=== PATIENT | male | born 1985 | race Two or more races ===

== ENCOUNTER 2018-10-25 17:47 | Emergency (ER) | payer SELFPAY ==
[~2018-10-25] VITALS: Ht 172.7 cm; Wt 72.6 kg
--- NOTE | 2018-10-25 17:50 | NUR ---
BIB [facility] AND [employer]. PT AMBULATORY ON ARRIVAL, A/O X 3, STATES HE FELL ASLEEP IN HIS CAR AND ADMITS TO USING [facility] EARLI[facility] TODAY. NO S/S OF ACUTE DISTRESS NOTED. AT BEDSIDE ON ARRIVAL. PT HAS NO MEDICAL COMPLAINTS.
--- NOTE | 2018-10-25 18:04 | NUR ---
PT WAS D/C TO HOME. D/C INSTRUCTIONS GIVEN TO THE PT.
[2018-10-25 18:07] VITALS: BP 132/77
== END 2018-10-25 18:09 | disposition home or self-care (01) ==
LOC: ER 17:50
DX: Z00.00 Encounter for general adult medical examination without abnormal findings (principal)
CPT/HCPCS: A4663